=== PATIENT | female | born 1980 | race American Indian/Alaskan Native ===

== ENCOUNTER 2021-06-10 10:24 | Outpatient (CLI) | payer MEDICARE, OTHER ==
--- NOTE | 2021-06-10 11:10 | Cat Scan Report ---
CT ABDOMEN AND PELVIS WITHOUT CONTRAST INDICATION / CLINICAL INFORMATION: HEMATURIA. TECHNIQUE: Axial CT images were obtained through the abdomen and pelvis without IV contrast. All CT scans at this location are performed using CT dose reduction for ALARA by means of automated exposure control. COMPARISON: None available. FINDINGS: LOWER CHEST: There is a 1.5 x 2.1 cm subcutaneous nodule in the midline chest as seen on series 2 donato ge 19. LIVER: No significant abnormality. GALLBLADDER: No significant abnormality. BILE DUCTS: No significant abnormality. PANCREAS: No significant abnormality. SPLEEN: No significant abnormality. ADRENALS: No significant abnormality. RIGHT KIDNEY / URETER: No significant abnormality. LEFT KIDNEY / URETER: No significant abnormality. STOMACH / SMALL BOWEL: No significant abnormality. COLON: No significant abnormality. APPENDIX: No significant abnormality. PERITONEUM: No free fluid. No free air. No fluid collection. LYMPH NODES: No significant adenopathy. AORTA / ARTERIES: No significant abnormality. IVC / VEINS: No significant abnormality. URINARY BLADDER: No significant abnormality. REPRODUCTIVE ORGANS: No significant abnormality. Multiple pelvic phleboliths. ADDITIONAL FINDINGS: None. SKELETAL SYSTEM: No significant abnormality. IMPRESSION: 1. No acute abnormality or urinary tract calculi to account for patient's hematuria. 2. Incidental subcutaneous nodule in the midline chest overlying the sternum is nonspecific. Recommen d clinical correlation. Signer Name: Clay Vizcaino MD Signed: 06/10/2021 11:05 AM Workstation Name: [employer]
== END 2021-06-10 10:25 | disposition home or self-care (01) ==
LOC: CT 10:24
PROVIDERS: ATTEND Urology
DX: R31.29 Other microscopic hematuria (principal); R91.1 Solitary pulmonary nodule
CPT/HCPCS: 74176